=== PATIENT | male | born 1990 | race Caucasian/White ===

== ENCOUNTER 2019-11-10 19:29 | Emergency (ER) | payer SELFPAY ==
[2019-11-10 19:40] VITALS: BP 124/75; PULSE 70; TEMP 98.8; BMI 18.7
--- NOTE | 2019-11-10 19:41 | PDOC ---
Rapid Medical Evaluation Chief Complaint: Foreign Body (FB) Time Seen by Provider: 11/10/19 19:35 Medical Evaluation: 11/10/19 19:35 I have performed a brief in-person evaluation of this patient. The patient presents with a chief complaint of: foreign body in right eye s/p doing a metal work 5 days ago and feeling a metal piece going into the right eye. saw ophthalmology today but still has pain in right eye Pertinent physical exam findings:. moderately injected right conjunctiva. MOY b/l I have ordered the following: nothing The patient will proceed to the ED for further evaluation. Discharge Disposition - Diagnosis Foreign body accidentally entering eye and adnexa - Discharge Dispostion Condition at time of disposition: Stable - Referrals - Patient Instructions - Post Discharge Activity
[2019-11-10] MEDS ORDERED: TETRACAINE 0.5% OPHTH SOLN 2 ML BOTTLE ONE (19:55)
[2019-11-10] MEDS ORDERED: ERYTHROMYCIN 0.5% OPHTHALMIC OINTMENT 3.5 GM TUBE ONE (20:09)
[2019-11-10] MEDS ORDERED: IBUPROFEN 400 MG TABLET (FP) PO ONE ×2 (20:21→20:28)
--- NOTE | 2019-11-10 20:22 | PDOC ---
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 ) Past History - Medical History Allergies/Adverse Reactions: Allergies Allergy/AdvReac Type Severity Reaction Status Date / Time No Known Allergies Allergy Verified 11/10/19 19:40 Home Medications: Ambulatory Orders Erythromycin 0.5% Eye Ointment [Erythromycin 0.5% Eye Ointment -] 1 applic AD TID 7 Days #1 tube 11/10/19 COPD: No - Psycho-Social/Smoking History Smoking History: Never smoked - Substance Abuse Hx (Audit-C & DAST Scrn) How often the patient has a drink containing alcohol: Never Score: In Men: 4 or > Positive; In Women: 3 or > Positive: 0 Screen Result (Pos requires Nsg. Audit-10AR): Negative In the last yr the pt used illegal drug/Rx for NonMed reason: No Score: Yes response is considered Positive: 0 Screen Result (Positive result requires Nsg. DAST-10): Negative *Physical Exam - Vital Signs Last Vital Signs Temp Pulse Resp BP Pulse Ox 98.8 F 70 19 124/75 98 11/10/19 19:35 11/10/19 19:35 11/10/19 19:35 11/10/19 19:35 11/10/19 19:35 Medical Decision Making - Medical Decision Making 11/10/19 20:45 29 years old male with no prior medical history accompanied to the emergency room with friend complaining of right eye redness and irritation after a piece of metal fell into his eye 5 days ago while working. Patient reports that he was seen at a local clinic yesterday located in [address] [place] [address], he reported he was seen and the piece of metal was removed yesterday but is still having pain. Patient denies any blurred vision, fever, chills and he does not use any contact lens. Patient cannot recall if the person I saw him yesterday was an ophthalmology or primary care. He reports he was not given a follow-up. Visual acuity is 20/40 in the affected eye, and 2030 in the left eye. Examination consist of injected conjunctiva of the right eye. PERRLA, EOML bilateral Fluorescein stain shows some abrasion there was no sign of retained foreign body or corneal ulcer noted. Patient felt better after tetracaine was applied for staining. Erythromycin ointment was applied patient was given an eye patch. Patient was instructed to follow-up ophthalmology on Tuesday. Strict return instructions given. [place]ic interpretor Paradial was used. Discharge - Discharge Information Problems reviewed: Yes Clinical Impression/Diagnosis: Foreign body accidentally entering eye and adnexa Corneal abrasion, right Qualifiers: Encounter type: initial encounter Qualified Code(s): S05.01XA - Injury of conjunctiva and corneal abrasion without foreign body, right eye, initial encounter Clinical Impression/Diagnosis: (Ruled Out): Corneal abrasion, left Condition: Stable Disposition: HOME - Admission No - Additional Discharge Information Prescriptions: Erythromycin 0.5% Eye Ointment [Erythromycin 0.5% Eye Ointment -] 1 applic AD TID 7 Days #1 tube Prescription Drug Monitoring Program (I-STOP) results: I-STOP reviewed and no issues identified - Follow up/Referral Referrals: Trey Bourne MD [Staff Physician] - Zac Bourne MD [Staff Physician] - - Patient Discharge Instructions Patient Printed Discharge Instructions: DI for Corneal Abrasion Additional Instructions: You have an abrasion in your eye. There was no foreign body seen today. Please use antibacterial ointment that he was provided with an additional was sent to the pharmacy. Follow-up ophthalmology on Tuesday. Return to the emergency room if worsening symptoms occur. - Post Discharge Activity
== END 2019-11-10 20:35 | disposition home or self-care (01) ==
LOC: JERFT 19:29
DX: T15.91XA Foreign body on external eye, part unspecified, right eye, initial encounter (principal); S05.01XA Injury of conjunctiva and corneal abrasion without foreign body, right eye, initial encounter
CPT/HCPCS: 99283-25